=== PATIENT | male | born 1985 | race Caucasian/White ===

== ENCOUNTER 2020-12-18 14:28 | Inpatient (IN) | payer OTHER ==
[2020-12-18 16:10] VITALS: BMI 27.8
[2020-12-18] MEDS ORDERED: BISMUTH SUBSALICYLATE 524 MG/30 ML PO PRN (17:18)
[2020-12-18] MEDS ORDERED: NICOTINE POLACRILEX 2 MG GUM BUC PRN (17:18)
[2020-12-18] MEDS ORDERED: ONDANSETRON *ODT* 4 MG TABLET SL PRN (17:18)
[2020-12-18] MEDS ORDERED: MAGNESIUM HYDROX 2400MG/30ML ORAL SUSPENSION 30 ML CUP PO PRN (17:18)
[2020-12-18] MEDS ORDERED: IBUPROFEN 400 MG TABLET (FP) PO PRN (17:18)
[2020-12-18] MEDS ORDERED: MAG HYDROX/AL HYDROX/SIMETH 30 ML UNIT-DOSE CUP PO PRN (17:18)
[2020-12-18] MEDS ORDERED: ACETAMINOPHEN 325 MG TABLET (FP) PO PRN ×2 (17:18)
[2020-12-18] MEDS ORDERED: MENTHOL/PHENOL 1 EACH UD MM PRN (17:18)
[2020-12-18] MEDS ORDERED: METHOCARBAMOL 500 MG TABLET PO PRN (17:18)
[2020-12-18] MEDS ORDERED: MAGNESIUM CITRATE 300 ML BOTTLE PO PRN (17:18)
[2020-12-18] MEDS ORDERED: cloNIDine HCL 0.1 MG TABLET PO PRN (17:50)
[2020-12-18] MEDS ORDERED: methaDONE HCL 10 MG TABLET (FOR DETOX USE ONLY) PO ONE (18:30)
[2020-12-18] MEDS: THIAMINE HCL 100 MG TABLET (FP) PO SCH (22:29)
[2020-12-18] MEDS: MELATONIN 5 MG TABLETS PO SCH (22:29)
[2020-12-19] MEDS ORDERED: methaDONE HCL 10 MG TABLET (FOR DETOX USE ONLY) ONE (09:08)
[2020-12-19] MEDS: PRENATAL VITAMINS W/ FOLIC ACID TABLET (FP) PO SCH (10:18)
[2020-12-19] MEDS: NICOTINE 14 MG/24 HOURS TOPICAL PATCH TD SCH (10:19)
[2020-12-19 10:22] LABS: HEMATOCRIT 44.9 % (35.4-49); HEMOGLOBIN 15.2 GM/dL (11.7-16.9); MCH 28.7 pg (25.7-33.7); MCHC 33.9 g/dl (32.0-35.9); MEAN CELL VOLUME 84.7 fl (80-96); MEAN PLT VOLUME 9.7 fl (7.5-11.1); PLATELET COUNT 251 10^3/uL (134-434); RDW 13.3 % (11.9-15.9); WHITE BLOOD COUNT 11.1 K/mm3 (4.0-10.0)
[2020-12-19 10:32] LABS: ALBUMIN 3.8 g/dl (3.4-5.0); BLOOD UREA NITROGEN 16.8 mg/dL (7-18)
[2020-12-19 10:35] LABS: CREATININE 0.8 mg/dL (0.55-1.3)
[2020-12-19 10:36] LABS: BILIRUBIN,TOTAL 0.6 mg/dL (0.2-1)
[2020-12-19 10:37] LABS: TOT PROT 6.8 g/dl (6.4-8.2)
[2020-12-19] MEDS: MELATONIN 5 MG TABLETS PO SCH (22:49)
[2020-12-19] MEDS: THIAMINE HCL 100 MG TABLET (FP) PO SCH (22:49)
[2020-12-20] MEDS ORDERED: diazePAM 5 MG TABLET PO PRN (09:33)
[2020-12-20] MEDS ORDERED: methaDONE HCL 10 MG TABLET (FOR DETOX USE ONLY) PO ONE (10:00)
[2020-12-20] MEDS: PRENATAL VITAMINS W/ FOLIC ACID TABLET (FP) PO SCH (10:17)
[2020-12-20] MEDS: NICOTINE 14 MG/24 HOURS TOPICAL PATCH TD SCH (10:17)
[2020-12-20 13:13] VITALS: BP 121/83; PULSE 104; TEMP 98.2
[2020-12-22] MEDS ORDERED: methaDONE HCL 10 MG TABLET (FOR DETOX USE ONLY) PO ONE (10:00)
== END 2020-12-20 14:30 | disposition left against medical advice (07) | DRG 770 ==
LOC: YASAS 14:28 → Y6N 17:53
PROVIDERS: ADMIT Allergy & Immunology; ATTEND Allergy & Immunology
PROC: HZ2ZZZZ Detoxification Services for Substance Abuse Treatment (ICD-10-PCS; principal; 2020-12-18)
DX: F11.23 Opioid dependence with withdrawal (principal); F15.20 Other stimulant dependence, uncomplicated; F17.210 Nicotine dependence, cigarettes, uncomplicated
CPT/HCPCS: 36415; 80053; 85027; 86780; 93005; 93010; C9803; U0003; U0005

== ENCOUNTER 2023-10-23 12:40 | Inpatient (IN) | payer OTHER ==
[2023-10-23 13:56] VITALS: BMI 24.5
[2023-10-23] MEDS ORDERED: BENZOCAINE/MENTHOL (CHLORASEPTIC ) LOZENGE MM PRN (17:55)
[2023-10-23] MEDS ORDERED: NICOTINE POLACRILEX 2 MG LOZENGE BC PRN (17:55)
[2023-10-23] MEDS ORDERED: MAGNESIUM HYDROX 2400MG/30ML ORAL SUSPENSION 30 ML CUP PO PRN (17:55)
[2023-10-23] MEDS ORDERED: NICOTINE POLACRILEX 2 MG GUM BUC PRN (17:55)
[2023-10-23] MEDS ORDERED: guaiFENesin 600 MG TABLET.ER (FP) PO PRN (17:55)
[2023-10-23] MEDS ORDERED: MAG HYDROX/AL HYDROX/SIMETH 30 ML UNIT-DOSE CUP PO PRN (17:55)
[2023-10-23] MEDS ORDERED: NALOXONE HCL (KLOXXADO) 8 MG SPRAY NS PRN (17:55)
[2023-10-23] MEDS ORDERED: BENZONATATE 200 MG CAPSULE PO PRN (17:55)
[2023-10-23] MEDS ORDERED: IBUPROFEN 600 MG TABLET (FP) PO PRN (17:55)
[2023-10-23] MEDS ORDERED: POLYETHYLENE GLYCOL (HEALTHYLAX) 3350 17 GM PACKET PO PRN (17:55)
[2023-10-23] MEDS ORDERED: ACETAMINOPHEN 325 MG TABLET (FP) PO PRN (17:55)
[2023-10-23] MEDS ORDERED: IBUPROFEN 400 MG TABLET (FP) PO PRN (17:55)
[2023-10-23] MEDS ORDERED: BISMUTH SUBSALICYLATE 524 MG/30 ML PO PRN (17:55)
[2023-10-23] MEDS ORDERED: DICYCLOMINE HCL 10 MG CAPSULE PO PRN (17:55)
[2023-10-23] MEDS ORDERED: LOPERAMIDE HCL 2 MG CAPSULE PO PRN (17:55)
[2023-10-23] MEDS ORDERED: NALOXONE HCL 0.4 MG/ML VIAL IM PRN (17:55)
[2023-10-23] MEDS ORDERED: methaDONE HCL 10 MG TABLET (FOR DETOX USE ONLY) ONE (18:11)
[2023-10-23] MEDS: methaDONE HCL 10 MG TABLET (FOR DETOX USE ONLY) PO ONE (18:14)
[2023-10-23] MEDS: MELATONIN 5 MG TABLETS PO SCH (21:35)
[2023-10-23] MEDS: cloNIDine HCL 0.1 MG TABLET PO PRN (21:36)
[2023-10-23] MEDS: METHOCARBAMOL 500 MG TABLET PO PRN (21:36)
[2023-10-23] MEDS: THIAMINE 100 MG TABLET PO SCH (21:36)
[2023-10-23] MEDS: P-EPHED 60MG/TRIPROLIDI 2.5MG TABLET PO PRN (21:37)
[2023-10-24] MEDS: MELATONIN 5 MG TABLETS PO ONE (01:44)
[2023-10-24] MEDS ORDERED: cloNIDine HCL 0.1 MG TABLET PO SCH (10:00)
[2023-10-24] MEDS: methaDONE HCL 10 MG TABLET PO ONE (10:11)
[2023-10-24] MEDS: PRENATAL VITAMINS W/ FOLIC ACID TABLET (FP) PO SCH (10:13)
[2023-10-24 11:51] LABS: HEMATOCRIT 41.2 % (35.4-49); HEMOGLOBIN 13.7 GM/dL (11.7-16.9); MCH 28.5 pg (25.7-33.7); MCHC 33.1 g/dl (32.0-35.9); MEAN CELL VOLUME 86.2 fl (80-96); MEAN PLT VOLUME 9.8 fl (7.5-11.1); PLATELET COUNT 225 10^3/uL (134-434); RBC 4.78 M/mm3 (4.00-5.60); RDW 13.4 % (11.9-15.9); WHITE BLOOD COUNT 10.6 K/mm3 (4.0-10.0)
[2023-10-24] MEDS: methaDONE HCL 10 MG TABLET PO PRN (14:51)
[2023-10-25] MEDS: MELATONIN 5 MG TABLETS PO ONE (01:55)
[2023-10-25] MEDS: methaDONE 40 MG, methaDONE 10 MG PO ONE (09:57)
[2023-10-25] MEDS ORDERED: methaDONE HCL 10 MG TABLET (FOR DETOX USE ONLY) PO ONE (10:00)
[2023-10-25] MEDS ORDERED: METHOCARBAMOL 500 MG TABLET PO PRN (21:08)
[2023-10-25] MEDS: diphenhydrAMINE HCL 25 MG CAPSULE (FP) PO PRN (21:09)
[2023-10-25] MEDS: METHOCARBAMOL 500 MG TABLET PO PRN (21:14)
[2023-10-26] MEDS ORDERED: cloNIDine HCL 0.1 MG TABLET PO PRN
[2023-10-26] MEDS: methaDONE 40 MG, methaDONE 20 MG PO ONE (09:46)
[2023-10-27] MEDS ORDERED: methaDONE HCL 10 MG TABLET (FOR DETOX USE ONLY) PO ONE (10:00)
[2023-10-27] MEDS: methaDONE 40 MG, methaDONE 30 MG PO ONE (10:16)
[2023-10-27] MEDS: METHOCARBAMOL 750 MG TABLET PO PRN (10:19)
[2023-10-28 06:53] LABS: PH,URINE 5.5 (5.0-8.0); URINE APPEARANCE TURBID; URINE BILIRUBIN NEGATIVE (NEGATIVE); URINE COLOR YELLOW; URINE GLUCOSE (UA) NEGATIVE (NEGATIVE); URINE KETONE NEGATIVE (NEGATIVE); URINE LEUK ESTERASE NEGATIVE (NEGATIVE); URINE NITRITE NEGATIVE (NEGATIVE); URINE PROTEIN NEGATIVE (NEGATIVE)
[2023-10-28] MEDS: methaDONE HCL 40 MG DISPERSABLE TABLET PO ONE (10:06)
[2023-10-29] MEDS: methaDONE 80 MG, methaDONE 10 MG PO ONE (09:38)
[2023-10-30 08:54] VITALS: BP 115/67; PULSE 62; RESP 16; TEMP 98
[2023-10-30] MEDS ORDERED: methaDONE HCL 10 MG TABLET PO ONE (09:36)
[2023-10-30] MEDS: methaDONE 80 MG, methaDONE 10 MG PO ONE (10:18)
== END 2023-10-30 11:30 | disposition other institution (70) | DRG 773 ==
LOC: YASAS 12:40 → Y3N 18:12
PROVIDERS: ADMIT Surgery; ATTEND Surgery
PROC: HZ2ZZZZ Detoxification Services for Substance Abuse Treatment (ICD-10-PCS; principal; 2023-10-23)
DX: F11.23 Opioid dependence with withdrawal (principal); F17.210 Nicotine dependence, cigarettes, uncomplicated; F90.9 Attention-deficit hyperactivity disorder, unspecified type; G47.00 Insomnia, unspecified; Z56.0 Unemployment, unspecified; Z59.02 Unsheltered homelessness
CPT/HCPCS: 36415; 80305; 80307; 81003; 85027; 86780; 87811; 93005; 93010

== ENCOUNTER 2023-10-30 11:33 | Inpatient (IN) | payer OTHER ==
[2023-10-30] MEDS ORDERED: IBUPROFEN 400 MG TABLET (FP) PO PRN (13:18)
[2023-10-30] MEDS ORDERED: ACETAMINOPHEN 325 MG TABLET (FP) PO PRN (13:18)
[2023-10-30] MEDS ORDERED: NICOTINE POLACRILEX 4 MG LOZENGE BC PRN (13:18)
[2023-10-30] MEDS ORDERED: NICOTINE 14 MG/24 HOURS TOPICAL PATCH TD PRN (13:18)
[2023-10-30] MEDS ORDERED: BENZONATATE 200 MG CAPSULE PO PRN (13:18)
[2023-10-30] MEDS ORDERED: POLYETHYLENE GLYCOL (HEALTHYLAX) 3350 17 GM PACKET PO PRN (13:18)
[2023-10-30] MEDS ORDERED: NICOTINE POLACRILEX 4 MG GUM BUC PRN (13:18)
[2023-10-30] MEDS ORDERED: guaiFENesin 600 MG TABLET.ER (FP) PO PRN (13:18)
[2023-10-30] MEDS ORDERED: LOPERAMIDE HCL 2 MG CAPSULE PO PRN (13:18)
[2023-10-30] MEDS ORDERED: MAGNESIUM HYDROX 2400MG/30ML ORAL SUSPENSION 30 ML CUP PO PRN (13:18)
[2023-10-30] MEDS ORDERED: BENZOCAINE/MENTHOL (CHLORASEPTIC ) LOZENGE MM PRN (13:18)
[2023-10-30] MEDS ORDERED: NALOXONE HCL 0.4 MG/ML VIAL IVPUSH PRN (13:18)
[2023-10-30] MEDS ORDERED: IBUPROFEN 600 MG TABLET (FP) PO PRN (13:18)
[2023-10-30] MEDS ORDERED: hydrOXYzine PAMOATE 25 MG CAPSULE (FP) PO PRN (13:18)
[2023-10-30] MEDS ORDERED: NALOXONE (NYS OPIOID OVERDOSE PROGRAM) 4 MG/0.1 ML SPRAY NS PRN (13:18)
[2023-10-30] MEDS ORDERED: MAG HYDROX/AL HYDROX/SIMETH 30 ML UNIT-DOSE CUP PO PRN (13:18)
[2023-10-30] MEDS: MELATONIN 5 MG TABLETS PO SCH (21:26)
[2023-10-30] MEDS: METHOCARBAMOL 500 MG TABLET PO PRN (21:26)
[2023-10-30] MEDS: THIAMINE 100 MG TABLET PO SCH (21:26)
[2023-10-30] MEDS: diphenhydrAMINE HCL 25 MG CAPSULE (FP) PO PRN (21:27)
[2023-10-31] MEDS ORDERED: methaDONE HCL 10 MG TABLET PO SCH (06:00)
[2023-10-31] MEDS: PRENATAL VITAMINS W/ FOLIC ACID TABLET (FP) PO SCH (10:25)
[2023-10-31 15:53] LABS: HIV INTERPRETATION NEGATIVE (NEGATIVE)
[2023-11-01] MEDS: methaDONE HCL 40 MG DISPERSABLE TABLET PO SCH (06:00)
[2023-11-04] MEDS: methaDONE 40 MG, methaDONE 30 MG PO SCH (05:52)
[2023-11-04] MEDS ORDERED: methaDONE HCL 10 MG TABLET PO SCH (06:00)
[2023-11-06] MEDS ORDERED: methaDONE HCL 10 MG TABLET PO SCH (06:00)
[2023-11-06] MEDS: methaDONE 40 MG, methaDONE 20 MG PO SCH (06:07)
[2023-11-08] MEDS: methaDONE 40 MG, methaDONE 10 MG PO SCH (05:55)
[2023-11-08] MEDS ORDERED: methaDONE HCL 10 MG TABLET PO SCH (06:00)
[2023-11-11] MEDS: methaDONE HCL 40 MG DISPERSABLE TABLET PO SCH (05:59)
[2023-11-13] MEDS: methaDONE HCL 10 MG TABLET PO SCH (06:24)
[2023-11-16] MEDS: methaDONE HCL 10 MG TABLET PO SCH (05:58)
[2023-11-17] MEDS: methaDONE HCL 10 MG TABLET PO SCH (06:20)
[2023-11-17 06:28] VITALS: RESP 20
[2023-11-18 06:34] VITALS: BP 114/71; PULSE 67; TEMP 98.6
== END 2023-11-18 09:32 | disposition home or self-care (01) | DRG 773 ==
LOC: YASAS 11:33 → Y3W 11:34
PROVIDERS: ADMIT Allergy & Immunology; ATTEND Psychiatry & Neurology Pain Medicine
PROC: HZ2ZZZZ Detoxification Services for Substance Abuse Treatment (ICD-10-PCS; principal; 2023-10-30)
DX: F11.20 Opioid dependence, uncomplicated (principal); F17.210 Nicotine dependence, cigarettes, uncomplicated; G47.00 Insomnia, unspecified
CPT/HCPCS: 36415; 86803; 87389